=== PATIENT | male | born 1960 | race Caucasian/White ===

== ENCOUNTER 2018-07-11 14:28 | Outpatient (CLI) | payer BC ==
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
[~2018-07-11] VITALS: Ht 188 cm; Wt 95.3 kg
== END 2018-07-11 14:53 ==
LOC: PREOP 14:28
PROVIDERS: ATTEND Internal Medicine
DX: Z01.818 Encounter for other preprocedural examination (principal)

== ENCOUNTER 2018-07-14 06:56 | Day surgery (SDC) | payer BC ==
[~2018-07-14] VITALS: Ht 188 cm; Wt 95.3 kg
[2018-07-14] MEDS ORDERED: D5 LR IV SOLUTION 1,000 ML IV ONE (07:07)
[2018-07-14] MEDS ORDERED: fentaNYL INJECTION 100 MCG/2 ML AMP ONE (07:21)
[2018-07-14] MEDS ORDERED: MIDAZOLAM 2 MG/2 ML (VERSED) VIAL ONE (07:21)
[2018-07-14] MEDS ORDERED: LIDOCAINE JELLY 2% 6 ML SYRINGE ONE (07:21)
[2018-07-14] MEDS ORDERED: D5 LR IV SOLUTION 1,000 ML IV STA (07:35)
[2018-07-14 07:39] VITALS: BP 132/92
[2018-07-14] MEDS ORDERED: MIDAZOLAM 2 MG/2 ML (VERSED) VIAL IVP ONE (07:45)
[2018-07-14] MEDS ORDERED: fentaNYL INJECTION 100 MCG/2 ML AMP IVP ONE (07:45)
[2018-07-14] MEDS ORDERED: LIDOCAINE JELLY 2% 6 ML SYRINGE MM PRN (07:45)
[2018-07-14 08:10] VITALS: BP 119/75
--- NOTE | 2018-07-14 08:17 | Pre-Op Note & Conscious Sedat ---
Pre-Operative Progress Note H&P Reviewed The H&P was reviewed, patient examined and no changes noted. Date H&P Reviewed: Jul 14, 2018 Time H&P Reviewed: 07:00 Conscious Sedation Pre-Proced ASA Score 1 For ASA 3 and 4: Consider anesthesia and medical clearance. Also, for patients with a history of failed moderate sedation consider anesthesia. Airway Lungs Heart ASA score ASA 1: a normal healthy patient ASA 2: a patient with a mild systemic disease (mid diabetes, controlled hypertension, obesity ASA 3: a patient with a severe systemic disease that limits activity (angina , COPD, prior Myocardial infarction) ASA 4: a patient with an incapacitating disease that is a constant threat to life (CHF, renal failure) ASA 5: a moribund patient not expected to survive 24 hrs. (ruptured aneurysm) ASA 6: a declared brain- patient whose organs are being harvested. For emergent operations, add the letter E after the classification Mallampati Classification Grade 2 Sedation Plan Analgesia, Amnesia, Plan communicated to team members, Discussed options with patient/fam, Discussed risks with patient/fam The patient is an appropriate candidate to undergo the planned procedure, sedation, and anesthesia. The patient immediately re-assessed prior to indication. TEENA SOLIS MD Jul 14, 2018 08:17
[2018-07-14 08:35] VITALS: BP 118/86
[2018-07-14 08:41] VITALS: BP 118/86
--- NOTE | 2018-07-14 11:36 | OPERATIVE REPORT ---
DATE OF SERVICE: COLONOSCOPY SUMMARY INDICATION FOR THE PROCEDURE: Screening colonoscopy. "I am his primary care provider." The patient was placed in the left lateral decubitus position. Prior to undergoing colonoscopy, digital rectal evaluation was performed. Anal sphincter tone was normal. Perianal reflexes intact. No abnormalities were noted on visual inspection of anal canal or distal rectal vault. The prostate is normal in size, anodular, nontender to digital inspection. The colonoscope was then inserted into the rectum and under direct visualization advanced to the cecum. The cecum was identified by identification of the ileocecal valve and cecal strap as well as appendiceal orifice. Photographic documentation was obtained and the quality of prep was good. FINDINGS: There is no evidence for internal or external hemorrhoids and the rectum and sigmoid colon were unremarkable. Present in the distal descending colon was a roughly 8 mm adenomatous appearing polyp, likely on a very short stalk. It was snared and ligated noted at the base had the appearance of a small amount of remaining adenomatous tissue uniform appearance. No ulceration. The base was biopsied, cauterized and submitted in a separate cup. Photograph was obtained. The remainder of the descending colon, splenic flexure, transverse colon, hepatic flexure, ascending colon and cecum were unremarkable. ASSESSMENT: An 8 mm polyp likely on a very short stalk was present today and removed in its entirety via snare with some questionable polyp tissue spilling out from the adjacent base, which was cauterized. As long as there is no surprise on histopathology report as in dysplasia or microscopic malignancy, we will likely be abdicating repeat surveillance colonoscopy in one year. No other abnormalities were noted on colonoscopy to the cecum with normal digital rectal evaluation of the prostate, anal canal and distal rectum. Job ID: [id number] DocumentID: [id number] Dictated Date: 07/14/2018 08:51:53 Appraiser Irrigation Tax Date: 07/14/2018 11:35:44 Dictated By: TEENA SOLIS MD [facility]
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
== END 2018-07-14 09:45 | disposition home or self-care (01) ==
LOC: SDC 06:56 → ENDO 09:45
PROVIDERS: ATTEND Internal Medicine
DX: Z12.11 Encounter for screening for malignant neoplasm of colon (principal); D12.4 Benign neoplasm of descending colon; E78.5 Hyperlipidemia, unspecified
CPT/HCPCS: 88305

== ENCOUNTER → 2019-07-17 | Outpatient (CLI) | payer BC | END | disposition home or self-care (01) | LOC: PREOP 05:37 | PROVIDERS: ATTEND Internal Medicine | DX: Z01.818 Encounter for other preprocedural examination (principal) ==

== ENCOUNTER 2022-07-22 11:55 | Outpatient (CLI) | payer BC ==
[~2022-07-22] VITALS: Ht 185.5 cm; Wt 100.0 kg
[~2022-07-22 11:55] MED LIST: BENA10TA66 PO; ROSU10TA28 PO
== END 2022-07-22 13:36 | disposition home or self-care (01) ==
LOC: PREOP 11:55
PROVIDERS: ATTEND Internal Medicine
DX: Z01.818 Encounter for other preprocedural examination (principal)

== ENCOUNTER 2022-07-24 09:36 | Day surgery (SDC) | payer BC ==
--- NOTE | 2022-07-22 12:28 | HISTORY AND PHYSICAL ---
ESOPHAGOGASTRODUODENOSCOPY HISTORY AND PHYSICAL HISTORY OF PRESENT ILLNESS: The patient is a 61-year-old white male who presented to the office complaining about a 3-week history of epigastric pain with dysphagia and odynophagia to solids. He denies melena or bright red blood per rectum. He has had pretty much continual pain, but worse with swallowing. He has had no night sweats, chills or fever. Denied any nausea or vomiting. He is unsure whether or not he has lost any weight since the onset of the symptoms. PAST MEDICAL HISTORY: Significant for hypertension and hyperlipidemia. He has no past smoking history and no significant alcohol intake. PHYSICAL EXAMINATION: GENERAL: Reveals mildly uncomfortable white male due to epigastric discomfort. VITAL SIGNS: Weight was stable compared to 6 months ago at 221 pounds, blood pressure 118/80. CHEST: Clear. CARDIOVASCULAR: Reveals regular rate and rhythm without murmur, S3, or S4. ABDOMEN: Soft, supple. There is mild epigastric pain to palpation without rebound or guarding. No mass or organomegaly noted. No bruits noted. Bowel sounds positive. EXTREMITIES: Revealed no cyanosis, clubbing or edema. ASSESSMENT AND PLAN: For further investigation of epigastric pain with dysphagia to solids and odynophagia, the patient is being set up for an EGD evaluation this Wednesday. Instructions were given. He will avoid nonsteroidal medications. We will empirically initiate pantoprazole 40 mg daily in the interim. Job ID: [id number] DocumentID: [id number] Dictated Date: 07/22/2022 11:58:08 Jet Dyeing Machine Operator Date: 07/22/2022 12:16:00 Dictated By: TEENA SOLIS MD
[~2022-07-24] VITALS: Ht 185.5 cm; Wt 100.0 kg
[2022-07-24] MEDS ORDERED: LACTATED RINGERS 1,000 ML IV STA (09:48)
[2022-07-24 09:55] VITALS: BP 149/96
[2022-07-24] MEDS ORDERED: HURRICAINE EXT TUBE (BENZOCAINE) XX PRN (10:00)
--- NOTE | 2022-07-24 10:05 | Pre-Op Note & Conscious Sedat ---
Pre-Operative Progress Note Date H&P Reviewed: Jul 24, 2022 Time H&P Reviewed: 10:04 History & Physical: H&P Reviewed, Patient Examed, No changes noted Pre-Op Diagnosis: fe deficiency anemia Conscious Sedation Pre-Proced ASA Score 3 For ASA 3 and 4: Consider anesthesia and medical clearance. Also, for patients with a history of failed moderate sedation consider anesthesia. Airway Lungs Heart ASA score ASA 1: a normal healthy patient ASA 2: a patient with a mild systemic disease (mid diabetes, controlled hypertension, obesity ASA 3: a patient with a severe systemic disease that limits activity (angina, COPD, prior Myocardial infarction) ASA 4: a patient with an incapacitating disease that is a constant threat to life (CHF, renal failure) ASA 5: a moribund patient not expected to survive 24 hrs. (ruptured aneurysm) ASA 6: a declared brain- patient whose organs are being harvested. For emergent operations, add the letter E after the classification Mallampati Classification Grade 2 Sedation Plan Analgesia, Amnesia, Plan communicated to team members, Discussed options with patient/fam, Discussed risks with patient/fam The patient is an appropriate candidate to undergo the planned procedure, sedation, and anesthesia. The patient immediately re-assessed prior to indication. TEENA SOLIS MD Jul 24, 2022 10:05
[2022-07-24] MEDS ORDERED: PROPOFOL INJECTION 50 ML IV ONE (10:25)
[2022-07-24 10:55] VITALS: BP 105/64
--- NOTE | 2022-07-24 10:57 | Anesthesia-General Post-Op ---
MAC Patient Condition Mental Status/LOC: Same as Preop Cardiovascular: Satisfactory Nausea/Vomiting: Absent Respiratory: Satisfactory Pain: Controlled Complications: Absent Post Op Complications Complications None Follow Up Care/Instructions Patient Instructions None needed. Anesthesiology Discharge Order Discharge Order Patient is doing well, no complaints, stable vital signs, no apparent adverse anesthesia problems. No complications reported per nursing. KORTNEY DAO CRNA Jul 24, 2022 10:57
[2022-07-24 11:00] VITALS: BP 117/73
[2022-07-24 11:05] VITALS: BP 101/63
[2022-07-24 11:38] LABS: BASOPHILS # (AUTO) 0.1 10^3/uL (0.0-0.1); BASOPHILS % (AUTO) 1 % (0-10); EOSINOPHILS # (AUTO) 0.4 10^3/uL (0.0-0.3); EOSINOPHILS % (AUTO) 6 % (0-10); HEMATOCRIT 38 % (40-54); HEMOGLOBIN 13.4 g/dL (13.3-17.7); LYMPHOCYTES # (AUTO) 0.9 10^3/uL (1.0-4.0); LYMPHOCYTES % (AUTO) 11 % (12-44); MEAN CORPUSCULAR HEMOGLOBIN 30 pg (25-34); MEAN CORPUSCULAR HGB CONC 35 g/dL (32-36); MEAN CORPUSCULAR VOLUME 84 fL (80-99); MEAN PLATELET VOLUME 9.6 fL (9.0-12.2); MONOCYTES # (AUTO) 0.7 10^3/uL (0.0-1.0); MONOCYTES % (AUTO) 9 % (0-12); NEUTROPHILS # (AUTO) 5.7 10^3/uL (1.8-7.8); NEUTROPHILS % (AUTO) 73 % (42-75); PLATELET COUNT 292 10^3/uL (130-400); WHITE BLOOD COUNT 7.8 10^3/uL (4.3-11.0)
--- NOTE | 2022-07-24 11:40 | Progress Note-Post Operative ---
Post-Procedure Note Physician (s)/Fiberglass Auto Body Repairer (s) Physician TEENA SOLIS MD Pre-Procedure Diagnosis Pre-Procedure Diagnosis: fe deficiency anemia Post-Procedure Diagnosis Post-operative diagnosis: The patient was placed in the left lateral decubitus position. The endoscope was inserted into the oral cavity and under direct visualization advanced down the esophagus through the stomach into the second portion of the duodenum. A careful inspection was made as the endoscope was withdrawn. Findings: The posterior pharynx epiglottis arytenoid aperture and true and false vocal folds were unremarkable to visual inspection. Proximal and midesophagus were unremarkable with no evidence for dilatation. Beginning 3037 cm from the incisor orifice was a distal esophageal mass friable with some mild narrowing of the esophagus but there was no difficulty in advancing the scope into the stomach. There is an associated ulceration with no evidence to suggest Hooper's esophagus. The ulceration extends into the adjacent cardia of the stomach noted on retroflexed photograph. Multiple biopsies were obtained. There is no evidence for hiatal hernia formation. The remainder of the cardia fundus antrum pylorus pyloric channel duodenal bulb and second portion were unremarkable with no evidence for peptic ulcer disease gastritis or duodenitis. A/P 1. There is a distal esophageal mass with ulceration and secondary mild narrowing of the distal esophagus without endoscopic evidence for Hooper's change and no evidence for hiatal hernia. Ulceration extends into the adjacent cardia noted on retroflexed photograph. multiple biopsies were obtained and submitted for histopathology. staging CT of the chest and abdomen were scheduled to be done later today. We are in the process Of making oncology referral. Findings were discussed with the patient. TEENA SOLIS MD Jul 24, 2022 11:40
[2022-07-24 11:54] LABS: POTASSIUM 4.5 MMOL/L (3.6-5.0)
[2022-07-24 11:55] LABS: CALCIUM 8.9 MG/DL (8.5-10.1)
[2022-07-24 11:56] LABS: TOTAL PROTEIN 6.5 GM/DL (6.4-8.2)
[2022-07-24 11:58] LABS: BILIRUBIN,TOTAL 0.7 MG/DL (0.1-1.0)
[2022-07-24 12:00] LABS: CREATININE SERUM 0.79 MG/DL (0.60-1.30)
[2022-07-24 12:20] LABS: EOSINOPHILS % (MANUAL) 1 %; LYMPHOCYTES % (MANUAL) 7 %; MONOCYTES % (MANUAL) 7 %; NEUTROPHILS % (MANUAL) 85 %; RBC MORPH NORMAL
[2022-07-24] MEDS ORDERED: CATHETER FLUSH 10 ML SYR IV PRN (12:30)
[2022-07-24] MEDS ORDERED: BARIUM SUSPENSION 2.1% (VANILLA SILQ) 450 ML PO ONE (12:30)
[2022-07-24] MEDS ORDERED: NS 100 ML (IVPB) BAG IV ONE (12:30)
[2022-07-24] MEDS ORDERED: IOHEXOL 350 MG/ML 100 ML (OMNIPAQUE 350) VIAL IV ONE (12:30)
[2022-07-24] MEDS ORDERED: HOLD METFORMIN - RECEIVED CONTRAST 20 ML VIAL IV SCH (12:30)
[2022-07-24 13:00] VITALS: BP 101/63
--- NOTE | 2022-07-24 16:49 | Diagnostic Imaging Report ---
EXAMINATION: CT chest with contrast, CT abdomen with and without contrast. TECHNIQUE: Precontrast acquisitions were acquired through the abdomen. Multiple contiguous axial images were obtained through the chest and abdomen after administration of intravenous contrast. All CT scans use one or more of the following dose optimizing techniques: automated exposure control, MA and/or KvP adjustment based on a patient size and exam type, or iterative reconstruction. HISTORY: esophageal cancer staging COMPARISON: None available. FINDINGS: Thyroid: The thyroid is normal. Mediastinum: Heart size is normal without significant pericardial effusion. Calcifications of the aorta and coronary vessels. Thoracic aorta is normal in caliber. No suspicious lymphadenopathy. Lungs and airways: The lungs are clear without consolidation, pleural effusion, or pneumothorax. No suspicious pulmonary lesion. The airways are normal. Solid organs: The liver is normal without focal lesion. There is no biliary ductal dilation. Gallbladder is normal. Pancreas is normal. Spleen is normal. There is a left adrenal mass measuring 3.7 cm which demonstrates Hounsfield units of -17. The kidneys are normal without hydronephrosis. Bowel: There may be mild wall thickening of the distal esophagus to the gastroesophageal junction. Wall thickening may extend into the proximal stomach across the gastroesophageal junction. There is no bowel obstruction. Peritoneum: There is no intraperitoneal free fluid or free air. There is a 2.2 x 1.7 cm gastrohepatic lymph node. No other suspicious lymphadenopathy is seen. Vasculature: Normal without aneurysm. Musculoskeletal: Multilevel degenerative changes of the spine. There is a compression deformity of the T11 vertebral body. No suspicious osseous lesion. IMPRESSION: 1. Wall thickening of the distal esophagus and proximal stomach which may correspond to the history of esophageal cancer. 2. Enlarged gastric hepatic lymph node concerning for montse metastasis. 3. No other findings of metastatic disease within the chest, abdomen, or pelvis. 4. The 3.7 cm left adrenal mass with imaging characteristics favoring an adenoma or myolipoma. Recommend continued attention on followup imaging. Dictated by: Dictated on workstation # [id number]
== END 2022-07-24 13:07 | disposition home or self-care (01) ==
LOC: ENDO 09:36
PROVIDERS: ATTEND Internal Medicine
DX: C15.9 Malignant neoplasm of esophagus, unspecified (principal); K22.10 Ulcer of esophagus without bleeding; D50.9 Iron deficiency anemia, unspecified
CPT/HCPCS: 36415; 71260; 74170; 80053; 82565; 84520; 85007; 85027; 88305

== ENCOUNTER → 2022-07-30 | Outpatient (CLI) | payer BC ==
[~2022-07-30] MED LIST changes: +CATHETER FLUSH 10 ML SYR IVP PRN
--- NOTE | 2022-07-31 08:39 | Diagnostic Imaging Report ---
Indication: Malignant neoplasm of the cardia, gastroesophageal carcinoma. Serum blood glucose level at time of injection is 97 mg/dL. Patient was administered 10.1 mCi F-18 FDG intravenously left antecubital location and PET imaging was performed from the top of skull to mid thighs. Noncontrast CT was also performed for attenuation correction and anatomic correlation. No prior PET/CT studies are available for comparison. Comparison is made with conventional CT from 07/24/2022. There is normal symmetric activity throughout the brain. Soft tissues of the neck are unremarkable. No mediastinal or hilar hypermetabolism is identified. No pulmonary parenchymal hypermetabolism is identified. There is hypermetabolic mass in the region of the distal esophagus GE junction corresponding with no malignancy. This demonstrates SUV max of 17.8. There are 2 enlarged lymph nodes just posterior to the pancreatic body which are hypermetabolic. Largest is approximately 2.1 cm in size and demonstrate SUV max of 24.8. No other areas of abnormal hypermetabolism are seen. Is physiologic uptake within the gastrointestinal or genitourinary tract over the abdomen and pelvis. IMPRESSION: Hypermetabolic mass at the GE junction consistent with a known primary malignancy. There are 2 hypermetabolic lymph nodes in the central retroperitoneum consistent with metastatic montse disease. No other abnormal regions of hypermetabolism are identified. Dictated by: Dictated on workstation # [id number]
== END ==
LOC: RAD 10:15
PROVIDERS: ATTEND Internal Medicine Hematology & Oncology
DX: C16.0 Malignant neoplasm of cardia (principal)
CPT/HCPCS: 78815; 82947; A9552

== ENCOUNTER 2022-08-04 14:30 | Outpatient (RCR) | payer BC ==
[~2022-08-04 14:30] MED LIST changes: -CATHETER FLUSH 10 ML SYR IVP PRN
== END 2022-08-14 | disposition home or self-care (01) ==
LOC: ONC 14:30
PROVIDERS: ATTEND Internal Medicine Hematology & Oncology
DX: Z53.9 Procedure and treatment not carried out, unspecified reason (principal)

== ENCOUNTER 2022-08-31 05:32 | Outpatient (CLI) | payer BC ==
[~2022-08-31] VITALS: Ht 185.4 cm; Wt 99.0 kg
[2022-08-31] MEDS ORDERED: SPIR25TA PO (09:57)
[2022-08-31] MEDS ORDERED: PANT40TA52 PO (09:58)
== END 2022-08-31 10:09 | disposition home or self-care (01) ==
LOC: PREOP 05:32
PROVIDERS: ATTEND Surgery
DX: Z01.818 Encounter for other preprocedural examination (principal)

== ENCOUNTER 2022-09-02 07:42 | Day surgery (SDC) | payer BC ==
[~2022-09-02] VITALS: Ht 185 cm; Wt 99.0 kg
[~2022-09-02 07:42] MED LIST changes: +PANT40TA52 PO; +SPIR25TA PO
--- NOTE | 2022-09-02 07:53 | Progress Note-Pre Operative ---
Pre-Operative Progress Note Date H&P Reviewed: Sep 02, 2022 Time H&P Reviewed: 07:53 History & Physical: H&P Reviewed, Patient Examed, No changes noted Pre-Operative Diagnosis: esophageal cancer DEVORA ALEX DO Sep 02, 2022 07:53
[2022-09-02] MEDS ORDERED: HEParin (CENTRAL IV FLUSH) 500 UNIT/5 ML SYR ONE (08:02)
[2022-09-02] MEDS ORDERED: 0.9% SODIUM CHLORIDE PF INJ 20 ML VIAL ONE (08:02)
[2022-09-02] MEDS ORDERED: BUP/EPI 0.5% 1:200,000 (SENSORCAINE) 30 ML VIAL ONE (08:02)
[2022-09-02] MEDS ORDERED: LACTATED RINGERS 1,000 ML IV PRN (08:45)
[2022-09-02] MEDS ORDERED: ceFAZolin INJECTION 2,000 MG in NS (IVPB) 50 ML IV ONE (08:45)
[2022-09-02 08:46] VITALS: BP 144/99
[2022-09-02] MEDS ORDERED: PROPOFOL INJECTION 50 ML IV ONE (09:01)
[2022-09-02] MEDS ORDERED: MIDAZOLAM 2 MG/2 ML (VERSED) VIAL ONE (09:01)
[2022-09-02] MEDS ORDERED: GLYCOPYRROLATE 0.2 MG/ML (ROBINUL) 2 ML VIAL ONE (09:04)
[2022-09-02] MEDS ORDERED: 0.9% SODIUM CHLORIDE PF INJ 20 ML VIAL IR ONE (09:23)
--- NOTE | 2022-09-02 09:26 | Progress Note-Post Operative ---
Post-Operative Progess Note Surgeon (s)/Internal Communications Specialist (s) Surgeon DEVORA ALEX DO Internal Communications Specialist: na Pre-Operative Diagnosis esophageal cancer Post-Operative Diagnosis same Procedure & Operative Findings Date of Procedure 09/02/22 Procedure Performed/Findings PROCEDURE: Right internal jugular port placement using ultrasound guidance. COMPLICATIONS: None. INDICATIONS: The patient is a 62 year old male with esophageal cancer. Patient understands the risks and benefits of port placement and wished to proceed with the procedure. Consent was signed on the chart. PROCEDURE: The patient was taken to the operating suite, was prepped and draped in the sterile fashion. A surgical pause was performed. Ultrasound was used to locate the internal jugular vein. Once located anesthetic was infiltrated above it. Using micro-access kit, the right internal vein was accessed. Dark nonpulsatile blood was withdrawn. The wire was inserted. Fluoroscopy assured proper placement. The needle was removed. The micro-access dilator was advanced over the wire and the wire was removed. The regular wire was inserted and fluoroscopy assured proper placement. The wire was then secured. Local anesthetic was used to anesthetize from the neck for tunneling down to the right chest and for pocket creation. A 15 blade scalpel was used to make an incision over the right chest. Cautery was used to dissect down to the pectoral fascia. A pocket was created with blunt dissection. The dilator sheath was then advanced over the wire under fluoroscopy and the dilator and wire were removed. The Groshong catheter was inserted through the sheath and the sheath was then removed. The Groshong wire was removed. The catheter was then tunneled to the right chest pocket. Fluoroscopy was used to cut to length and this was then attached to the port which was then placed within the pocket. The port was then accessed without difficulty. It was then flushed with saline and then heparin. The subcutaneous tissues were then reapproximated using 3-0 Vicryl. The areas were then washed and dried. Skin Affix was placed over incision. The insertion point of the neck Skin Affix was placed over the incision. The patient tolerated the procedure well without complication and was taken to recovery room in stable condition. Chest x-ray is pending. Anesthesia Type mac c sedation Estimated Blood Loss Estimated blood loss (mL): minimal Specimens/Packing Specimens Removed DEVORA Dominguez DO Sep 02, 2022 09:26
--- NOTE | 2022-09-02 09:28 | Discharge Inst-Simple/Standard ---
Discharge Inst-Standard Patient Instructions/Follow Up Plan of Care/Instructions/FU: 2 weeks Samy Activity as Tolerated: No Discharge Diet: Regular Diet Other Inst to Patient Follow up Appt: Make appointment for 2 week. Instructions: No lifting greater than 10 pounds. No strenuous activity. May shower in 24 hours, no tub bath or soaking. Use incentive spirometer at home as directed. No Smoking Skin/Wound Care: You have special glue over your incision that will fall off on it's own. Ice pack on 15 min and off 30 min and repeat for first 48 hours. Symptoms to Report: Appetite Changes, Extremity Discoloration, Numbness/Tingling, Swelling Increased, Bleeding Excessive, Eyesight Changes, Pain Increased, Urine Color Change, Constipation(Persistent), Fever over 101 degree F, Pain/Pressure in chest, Urinating Difficulty, Cough Up/Vomit Blood, Heart Beat Irreg/Pounding, Pain/Pressure in jaw, Vaginal Bleeding Increase, Cramps in feet or legs, Lightheadedness, Pain/Pressure in shoulder, Diarrhea(Persistent), Memory Changes Suddenly, Questions/Concerns, Weight gain consecutive days, Dizziness/Fainting, Nausea/Vomiting, Shortness of Breath, Weight gain over 2 pounds If questions or concerns contact your physician Or seek help at emergency department. DEVORA ALEX DO Sep 02, 2022 09:28
[2022-09-02 09:30] VITALS: BP 109/67
[2022-09-02] MEDS ORDERED: BUP/EPI 0.5% 1:200,000 (SENSORCAINE) 30 ML VIAL INJ ONE (09:34)
[2022-09-02] MEDS ORDERED: HEParin (CENTRAL IV FLUSH) 500 UNIT/5 ML SYR XX ONE (09:36)
[2022-09-02 09:40] VITALS: BP 115/81
[2022-09-02 09:50] VITALS: BP_SYST 116; BP_DIAS 78; BP_DIAS 96
--- NOTE | 2022-09-02 09:54 | Diagnostic Imaging Report ---
INDICATION: Central venous port placement. AP view of the chest is obtained. There is an object overlying the right chest which limits evaluation. Right anterior chest wall port is in place with catheter tip reaching the mid superior vena cava. There is no evidence of pneumothorax. Left lung is clear. Heart size and pulmonary vascularity are within normal limits without significant pleural fluid. IMPRESSION: No acute abnormality or complication. Study is limited by radiopaque material overlying the right chest. Dictated by: Dictated on workstation # [id number]
[2022-09-02 10:20] VITALS: BP_SYST 116; BP_SYST 131; BP_DIAS 92; BP_DIAS 96
--- NOTE | 2022-09-02 11:20 | Anesthesia-General Post-Op ---
MAC Patient Condition Mental Status/LOC: Same as Preop Cardiovascular: Satisfactory Nausea/Vomiting: Absent Respiratory: Satisfactory Pain: Controlled Complications: Absent Post Op Complications Complications None Follow Up Care/Instructions Patient Instructions None needed. Anesthesiology Discharge Order Discharge Order Patient is doing well, no complaints, stable vital signs, no apparent adverse anesthesia problems. No complications reported per nursing. EYAL PAUL CRNA Sep 02, 2022 11:20
--- NOTE | 2022-09-02 14:50 | Diagnostic Imaging Report ---
FLUOROSCOPY UP TO 1 HOUR DATE: 09/02/2022 10:29 AM INDICATION: PORT PLACEMENT IN OR TECHNIQUE: Intraoperative CT acquisition of the Lumbar spine was performed without intravenous contrast. One or more of the following dose reduction techniques were utilized: Automated exposure control (AEC), Adjustment of mA and/or kV according to patient size, Use of iterative reconstruction technique such as ASiR, CT scan done according to ALARA and image gently/image wisely COMPARISON: None. Radiation Dose: Total Exposure Air Kerma (Ka,r) 2.9 mGy; time: 20.4 seconds FINDINGS: Single spot view obtained during port placement demonstrating tip positioned in the cavoatrial junction. IMPRESSION: Intraoperative localization. Please see operative report for additional details. Dictated by: Dictated on workstation # [id number]
== END 2022-09-02 10:58 | disposition home or self-care (01) ==
LOC: SDC 07:42
PROVIDERS: ATTEND Surgery
DX: C15.9 Malignant neoplasm of esophagus, unspecified (principal); I87.2 Venous insufficiency (chronic) (peripheral); K21.9 Gastro-esophageal reflux disease without esophagitis; Z79.899 Other long term (current) drug therapy
CPT/HCPCS: 36561; 71045; 76000; 87081; C1788

== ENCOUNTER 2022-09-11 08:00 | Outpatient (RCR) | payer BC ==
[2022-09-07 08:58] LABS: BASOPHILS % (AUTO) 0 % (0-10); EOSINOPHILS % (AUTO) 0 % (0-10); HEMATOCRIT 39 % (40-54); HEMOGLOBIN 13.8 g/dL (13.3-17.7); LYMPHOCYTES # (AUTO) 0.4 10^3/uL (1.0-4.0); LYMPHOCYTES % (AUTO) 3 % (12-44); MEAN CORPUSCULAR HEMOGLOBIN 30 pg (25-34); MEAN CORPUSCULAR HGB CONC 35 g/dL (32-36); MEAN CORPUSCULAR VOLUME 84 fL (80-99); MEAN PLATELET VOLUME 9.1 fL (9.0-12.2); MONOCYTES # (AUTO) 0.3 10^3/uL (0.0-1.0); MONOCYTES % (AUTO) 2 % (0-12); NEUTROPHILS # (AUTO) 15.3 10^3/uL (1.8-7.8); NEUTROPHILS % (AUTO) 95 % (42-75); PLATELET COUNT 375 10^3/uL (130-400); WHITE BLOOD COUNT 16.1 10^3/uL (4.3-11.0)
[2022-09-07 09:50] LABS: ALBUMIN 4.5 GM/DL (3.2-4.5); BILIRUBIN,TOTAL 0.6 MG/DL (0.1-1.0); CALCIUM 9.4 MG/DL (8.5-10.1); CREATININE SERUM 0.81 MG/DL (0.60-1.30); POTASSIUM 4.2 MMOL/L (3.6-5.0); TOTAL PROTEIN 7.5 GM/DL (6.4-8.2)
[~2022-09-11] VITALS: Ht 185.4 cm; Wt 98.9 kg
[~2022-09-11 08:00] MED LIST changes: +D5W 500 ML IV SOLUTION 500 ML IV SCH; +D5W IV SCH; +DOCETAXEL IV SCH; +FILGRASTIM AAFI 480 MCG/0.8 ML SQ SCH; +FLUOROURACIL IV SCH; +HEParin (CENTRAL IV FLUSH) 500 UNIT/5 ML SYR IV PRN; +LEUCOVORIN CALCIUM IV SCH; +NORMAL SALINE IV SCH; +NS IV 1000 ML 1,000 ML IV SCH; +NS IV SCH; +OXALIPLATIN IV SCH; +PALONOSETRON HCL 0.25 MG, dexAMETHasone INJECTION 20 MG in NS (IVPB) 50 ML IV SCH
== END 2022-09-13 | disposition home or self-care (01) ==
LOC: ONC 08:00
PROVIDERS: ATTEND Internal Medicine Hematology & Oncology
DX: Z51.11 Encounter for antineoplastic chemotherapy (principal); Z45.2 Encounter for adjustment and management of vascular access device; C16.0 Malignant neoplasm of cardia
CPT/HCPCS: 36591; 80053; 85025; 96368; 96372; 96375; 96413; 96415; 96416; 96417

== ENCOUNTER → 2022-09-21 | Outpatient (CLI) | payer BC ==
[~2022-09-21] MED LIST changes: -D5W 500 ML IV SOLUTION 500 ML IV SCH; -D5W IV SCH; -DOCETAXEL IV SCH; -FILGRASTIM AAFI 480 MCG/0.8 ML SQ SCH; -FLUOROURACIL IV SCH; -HEParin (CENTRAL IV FLUSH) 500 UNIT/5 ML SYR IV PRN; -LEUCOVORIN CALCIUM IV SCH; -NORMAL SALINE IV SCH; -NS IV 1000 ML 1,000 ML IV SCH; -NS IV SCH; -OXALIPLATIN IV SCH; -PALONOSETRON HCL 0.25 MG, dexAMETHasone INJECTION 20 MG in NS (IVPB) 50 ML IV SCH
--- NOTE | 2022-09-21 10:00 | Diagnostic Imaging Report ---
CLINICAL INDICATION: Patient with trouble drawing blood from port this morning. Patient states swelling above the clavicle. EXAM: Chest x-ray, PA and lateral views. COMPARISON: Chest x-ray dated 09/02/2022. FINDINGS: An Infusaport is again seen overlying the right chest which is now in a different position. The Infusaport distal portion is looped over the right lung apex and may be extending in a retrograde manner overlying the right subclavian vein region or less likely outside of the vessel. The lungs are clear. There is no pleural effusion or pneumothorax. The pulmonary vasculature and cardiac silhouette are within normal limits. There are degenerative spurs involving the thoracic spine. IMPRESSION: 1: There is interval change in position of the Infusaport overlying the right chest. The distal portion is now overlying the expected region of the right subclavian vein in a retrograde manner or less likely outside of the vessel. There is no pneumothorax. This catheter should be repositioned or replaced. 2: There is no radiographic evidence of an acute cardiopulmonary process. Dictated by: Dictated on workstation # [id number]
== END ==
LOC: RAD 09:23
PROVIDERS: ATTEND Internal Medicine Hematology & Oncology
DX: T82.599A Other mechanical complication of unspecified cardiac and vascular devices and implants, initial encounter (principal)
CPT/HCPCS: 71046

== ENCOUNTER 2022-09-23 06:45 | Day surgery (SDC) | payer BC ==
[2022-09-23] VITALS (9 sets, daily range): BP systolic 121–136; BP diastolic 83–89
[~2022-09-23] VITALS: Ht 185.4 cm; Wt 96.3 kg
[2022-09-23] MEDS ORDERED: NS IV 1000 ML 1,000 ML IV SCH ×2 (07:00→08:15)
[2022-09-23] MEDS ORDERED: NS IV 1000 ML 1,000 ML ONE (07:01)
[2022-09-23] MEDS ORDERED: LIDOCAINE 1% INJ 20 ML VIAL ONE (07:01)
[2022-09-23] MEDS ORDERED: HEParin (CATH LAB) 2,000 ML IV ONE (07:01)
[2022-09-23 07:28] LABS: PROTHROMBIN TIME PATIENT 13.7 SEC (12.2-14.7)
[2022-09-23] MEDS ORDERED: fentaNYL INJ 100 MCG/2 ML AMP ONE (07:41)
[2022-09-23] MEDS ORDERED: MIDAZOLAM 5 MG/5 ML (VERSED) VIAL ONE (07:41)
--- NOTE | 2022-09-23 07:42 | Cardiac Procedure Note-CS/ASA ---
Pre-Procedure Note Pre-Op Procedure Note Date of Available H&P: September 21, 2022 Date H&P Reviewed: September 23, 2022 Time H&P Reviewed: 07:42 History & Physical: H&P Reviewed, Patient Examed, No changes noted Pre-Operative Diagnosis: esophageal cancer Moderate Sedation PreProcedure Time 07:42 ASA Score 3 Airway Lungs Heart ASA score ASA 1: a normal healthy patient ASA 2: a patient with a mild systemic disease (mid diabetes, controlled hypertension, obesity ASA 3: a patient with a severe systemic disease that limits activity (angina, COPD, prior Myocardial infarction) ASA 4: a patient with an incapacitating disease that is a constant threat to life (CHF, renal failure) ASA 5: a moribund patient not expected to survive 24 hrs. (ruptured aneurysm) ASA 6: a declared brain- patient whose organs are being harvested. For emergent operations, add the letter E after the classification Mallampati Classification Grade 3 Sedation Plan Analgesia, Amnesia, Plan communicated to team members, Discussed options with patient/fam, Discussed risks with patient/fam The patient is an appropriate candidate to undergo the planned procedure, sedation, and anesthesia. The patient immediately re-assessed prior to indication. MIGUEL A SANCHEZ MD September 23, 2022 07:42
[2022-09-23] MEDS ORDERED: PATIENT MAY USE OWN MEDS, ALL PO SCH (08:15)
--- NOTE | 2022-09-23 08:18 | Discharge Inst-Post CATH ---
Discharge Inst-CATH/EP Problems Reviewed?: Yes Post Cardiac Cath/EP D/C Inst <b>CARDIAC CATH/EP PROCEDURE DISCHARGE INSTRUCTIONS</b> ACTIVITY * Go Home directly and rest. * Limit activity of the leg (or wrist if it was used) for 7 days including aerobics, swimming, jogging, bicycling, etc. * Restrict stair-climbing for 7 days if possible, if not, climb up with your non-cath leg, then bring together on the same step. * Avoid lifting, pushing, pulling or excessive movement of the affected extremity for 7 days. * Customary sexual activity may be resumed after 2 days-use caution not to use a position that strains or causes pain to the affected extremity. * No driving for 24 hours. * NO SMOKING. * Avoid straining for bowel movements for 7 days. * Gentle walking on level ground is allowed. * Returning to work will depend on the type of procedure and the results. Your doctor will discuss this with you. CALL YOUR DOCTOR FOR ANY OF THE FOLLOWING: *If bleeding from the puncture site occurs- Apply gentle pressure to site with clean cloth and call your doctor or EMS. * If a knot or lump forms under the skin, increases in size, or causes pain. * If bruising appears to be worsening or moving further down your leg instead of disappearing. * Temperature above 101 F. CARE OF YOUR GROIN INCISION; * Bruising or purple discoloration of the skin near the puncture site is common. * You may shower only, no bathtub bathing for 5 days. Be careful to avoid slipping as your leg may feel stiff. * If a closure device was used on your femoral artery, please see the attached guide regarding care of the device and your leg. * Leave dressing on FOR 24 hours. CARE OF YOUR WRIST INCISION; * Bruising or purple discoloration of the skin near the puncture site is common. * You may shower. * DO NOT submerge wrist. * Leave dressing on FOR 24 hours. MIGUEL A SANCHEZ MD September 23, 2022 08:18
--- NOTE | 2022-09-23 08:23 | Cardiac Procedure Note-KU ---
Cardiology Procedures Date of Procedure 09/23/22 Repositioning of Port-A-Cath Procedure note Patient had esophageal cancer, has port placed and it appeared that after coughing spell had the port tip turned and was looped in the SVC. Patient was referred for repositioning of his port. After explaining the procedure to the patient all pros and cons were explained, patient was placed on the cardiac catheterization laboratory, he signed a consent. Local anesthesia applied then 7 Nepali sheath was placed in the right femoral vein, IM catheter was advanced to the SVC with the assistance of Storq wire. I was able to loop the catheter around the port using fluoroscopy then I pulled it down and it was successful in readjusting the catheter down in the right atrium. The catheter was removed and sheath was removed and manual pressure applied. Conclusion Successful repositioning of a port in the right atrium Final diagnosis Esophageal cancer Malfunctioning Port-A-Cath Hyperlipidemia Copy Copies To 1: DEVORA ALEX BASHAR J MD September 23, 2022 08:23
== END 2022-09-23 10:40 | disposition home or self-care (01) ==
LOC: CATH 06:45 → SDC 08:29 → CATH 10:40
PROVIDERS: ATTEND Internal Medicine Cardiovascular Disease
DX: T82.514A Breakdown (mechanical) of infusion catheter, initial encounter (principal); C15.9 Malignant neoplasm of esophagus, unspecified; K21.9 Gastro-esophageal reflux disease without esophagitis; E78.2 Mixed hyperlipidemia; I65.23 Occlusion and stenosis of bilateral carotid arteries; I10 Essential (primary) hypertension; Y84.8 Other medical procedures as the cause of abnormal reaction of the patient, or of later complication, without mention of misadventure at the time of the procedure
CPT/HCPCS: 36597; 76000; 85610; 85730; 87081; C1769; C1894; 36415

== ENCOUNTER → 2022-10-14 | Outpatient (RCR) | payer BC ==
[2022-09-14 14:08] LABS: BASOPHILS % (AUTO) 1 % (0-10); EOSINOPHILS # (AUTO) 0.1 10^3/uL (0.0-0.3); EOSINOPHILS % (AUTO) 4 % (0-10); HEMATOCRIT 42 % (40-54); HEMOGLOBIN 14.4 g/dL (13.3-17.7); LYMPHOCYTES # (AUTO) 0.5 10^3/uL (1.0-4.0); LYMPHOCYTES % (AUTO) 17 % (12-44); MEAN CORPUSCULAR HEMOGLOBIN 29 pg (25-34); MEAN CORPUSCULAR HGB CONC 35 g/dL (32-36); MEAN CORPUSCULAR VOLUME 85 fL (80-99); MEAN PLATELET VOLUME 9.5 fL (9.0-12.2); MONOCYTES # (AUTO) 0.8 10^3/uL (0.0-1.0); MONOCYTES % (AUTO) 27 % (0-12); NEUTROPHILS # (AUTO) 1.4 10^3/uL (1.8-7.8); NEUTROPHILS % (AUTO) 49 % (42-75); PLATELET COUNT 240 10^3/uL (130-400); WHITE BLOOD COUNT 2.8 10^3/uL (4.3-11.0)
[2022-09-14 14:36] LABS: ALBUMIN 4.1 GM/DL (3.2-4.5); BILIRUBIN,TOTAL 0.9 MG/DL (0.1-1.0); CALCIUM 9.2 MG/DL (8.5-10.1); CREATININE SERUM 0.9 MG/DL (0.60-1.30); POTASSIUM 4.3 MMOL/L (3.6-5.0); TOTAL PROTEIN 6.9 GM/DL (6.4-8.2)
[2022-09-16 15:35] LABS: ALBUMIN 3.6 GM/DL (3.2-4.5); BILIRUBIN,TOTAL 0.9 MG/DL (0.1-1.0); CALCIUM 8.6 MG/DL (8.5-10.1); CREATININE SERUM 0.8 MG/DL (0.60-1.30); POTASSIUM 3.8 MMOL/L (3.6-5.0); TOTAL PROTEIN 6.2 GM/DL (6.4-8.2)
[2022-09-21 09:01] LABS: BASOPHILS # (AUTO) 0.1 10^3/uL (0.0-0.1); BASOPHILS % (AUTO) 1 % (0-10); EOSINOPHILS % (AUTO) 0 % (0-10); HEMATOCRIT 36 % (40-54); HEMOGLOBIN 12.8 g/dL (13.3-17.7); LYMPHOCYTES # (AUTO) 0.5 10^3/uL (1.0-4.0); LYMPHOCYTES % (AUTO) 5 % (12-44); MEAN CORPUSCULAR HEMOGLOBIN 29 pg (25-34); MEAN CORPUSCULAR HGB CONC 35 g/dL (32-36); MEAN CORPUSCULAR VOLUME 83 fL (80-99); MEAN PLATELET VOLUME 8.7 fL (9.0-12.2); MONOCYTES # (AUTO) 0.1 10^3/uL (0.0-1.0); MONOCYTES % (AUTO) 1 % (0-12); NEUTROPHILS # (AUTO) 9.2 10^3/uL (1.8-7.8); NEUTROPHILS % (AUTO) 87 % (42-75); PLATELET COUNT 316 10^3/uL (130-400); WHITE BLOOD COUNT 10.5 10^3/uL (4.3-11.0)
[2022-09-21 09:29] LABS: ALBUMIN 3.9 GM/DL (3.2-4.5); BILIRUBIN,TOTAL 0.6 MG/DL (0.1-1.0); CALCIUM 8.9 MG/DL (8.5-10.1); CREATININE SERUM 0.75 MG/DL (0.60-1.30); POTASSIUM 4.1 MMOL/L (3.6-5.0); TOTAL PROTEIN 6.7 GM/DL (6.4-8.2)
[2022-09-28 08:53] LABS: BASOPHILS % (AUTO) 0 % (0-10); EOSINOPHILS % (AUTO) 0 % (0-10); HEMATOCRIT 37 % (40-54); HEMOGLOBIN 12.8 g/dL (13.3-17.7); LYMPHOCYTES # (AUTO) 0.6 10^3/uL (1.0-4.0); LYMPHOCYTES % (AUTO) 5 % (12-44); MEAN CORPUSCULAR HEMOGLOBIN 29 pg (25-34); MEAN CORPUSCULAR HGB CONC 35 g/dL (32-36); MEAN CORPUSCULAR VOLUME 83 fL (80-99); MEAN PLATELET VOLUME 9.1 fL (9.0-12.2); MONOCYTES # (AUTO) 0.2 10^3/uL (0.0-1.0); MONOCYTES % (AUTO) 2 % (0-12); NEUTROPHILS # (AUTO) 10.7 10^3/uL (1.8-7.8); NEUTROPHILS % (AUTO) 90 % (42-75); PLATELET COUNT 340 10^3/uL (130-400); WHITE BLOOD COUNT 11.8 10^3/uL (4.3-11.0)
[2022-09-28 09:14] LABS: BILIRUBIN,TOTAL 0.7 MG/DL (0.1-1.0); CALCIUM 9.5 MG/DL (8.5-10.1); CREATININE SERUM 0.78 MG/DL (0.60-1.30); POTASSIUM 4.2 MMOL/L (3.6-5.0); TOTAL PROTEIN 6.6 GM/DL (6.4-8.2)
[2022-10-05 09:52] LABS: BASOPHILS # (AUTO) 0.1 10^3/uL (0.0-0.1); BASOPHILS % (AUTO) 2 % (0-10); EOSINOPHILS # (AUTO) 0.2 10^3/uL (0.0-0.3); EOSINOPHILS % (AUTO) 7 % (0-10); HEMATOCRIT 36 % (40-54); LYMPHOCYTES # (AUTO) 0.7 10^3/uL (1.0-4.0); LYMPHOCYTES % (AUTO) 22 % (12-44); MEAN CORPUSCULAR HEMOGLOBIN 29 pg (25-34); MEAN CORPUSCULAR HGB CONC 36 g/dL (32-36); MEAN CORPUSCULAR VOLUME 80 fL (80-99); MEAN PLATELET VOLUME 9.7 fL (9.0-12.2); MONOCYTES # (AUTO) 0.3 10^3/uL (0.0-1.0); MONOCYTES % (AUTO) 8 % (0-12); NEUTROPHILS % (AUTO) 61 % (42-75); PLATELET COUNT 223 10^3/uL (130-400); WHITE BLOOD COUNT 3.3 10^3/uL (4.3-11.0)
[2022-10-13 09:40] LABS: BASOPHILS % (AUTO) 0 % (0-10); EOSINOPHILS % (AUTO) 0 % (0-10); HEMATOCRIT 37 % (40-54); HEMOGLOBIN 12.8 g/dL (13.3-17.7); LYMPHOCYTES # (AUTO) 0.5 10^3/uL (1.0-4.0); LYMPHOCYTES % (AUTO) 5 % (12-44); MEAN CORPUSCULAR HEMOGLOBIN 29 pg (25-34); MEAN CORPUSCULAR HGB CONC 35 g/dL (32-36); MEAN CORPUSCULAR VOLUME 83 fL (80-99); MEAN PLATELET VOLUME 9.4 fL (9.0-12.2); MONOCYTES # (AUTO) 0.1 10^3/uL (0.0-1.0); MONOCYTES % (AUTO) 1 % (0-12); NEUTROPHILS # (AUTO) 8.3 10^3/uL (1.8-7.8); NEUTROPHILS % (AUTO) 92 % (42-75); PLATELET COUNT 185 10^3/uL (130-400)
[2022-10-13 09:54] LABS: ALBUMIN 4.1 GM/DL (3.2-4.5); CALCIUM 9.5 MG/DL (8.5-10.1); CREATININE SERUM 0.8 MG/DL (0.60-1.30); MAGNESIUM 1.9 MG/DL (1.6-2.4); POTASSIUM 4.1 MMOL/L (3.6-5.0); TOTAL PROTEIN 6.6 GM/DL (6.4-8.2)
[~2022-10-14] MED LIST changes: +D5W 500 ML IV SOLUTION 500 ML IV SCH; +D5W IV SCH; +DOCETAXEL IV SCH; +FILGRASTIM AAFI 480 MCG/0.8 ML SQ SCH; +FLUOROURACIL IV SCH; +HEParin (CENTRAL IV FLUSH) 500 UNIT/5 ML SYR IV PRN; +LEUCOVORIN CALCIUM IV SCH; +NORMAL SALINE IV SCH; +NS IV 1000 ML 1,000 ML IV SCH; +NS IV 1000 ML 1,000 ML ONE; +NS IV SCH; +OXALIPLATIN IV SCH; +PALONOSETRON HCL 0.25 MG, dexAMETHasone INJECTION 20 MG in NS (IVPB) 50 ML IV SCH
== END | disposition home or self-care (01) ==
LOC: ONC 09-14 12:55
PROVIDERS: ATTEND Internal Medicine Hematology & Oncology
DX: Z51.11 Encounter for antineoplastic chemotherapy (principal); C16.0 Malignant neoplasm of cardia
CPT/HCPCS: 80053; 85025; G0463; 36415; 36591; 83735; 96360; 96368; 96372; 96375; 96413; 96415; 96417; 99205

== ENCOUNTER 2022-11-04 16:00 | Outpatient (RCR) | payer BC ==
[2022-10-21 11:18] LABS: BASOPHILS # (AUTO) 0.1 10^3/uL (0.0-0.1); BASOPHILS % (AUTO) 2 % (0-10); EOSINOPHILS % (AUTO) 1 % (0-10); HEMATOCRIT 38 % (40-54); HEMOGLOBIN 13.3 g/dL (13.3-17.7); LYMPHOCYTES # (AUTO) 0.8 10^3/uL (1.0-4.0); LYMPHOCYTES % (AUTO) 24 % (12-44); MEAN CORPUSCULAR HEMOGLOBIN 29 pg (25-34); MEAN CORPUSCULAR HGB CONC 35 g/dL (32-36); MEAN CORPUSCULAR VOLUME 83 fL (80-99); MEAN PLATELET VOLUME 9.3 fL (9.0-12.2); MONOCYTES # (AUTO) 0.7 10^3/uL (0.0-1.0); MONOCYTES % (AUTO) 21 % (0-12); NEUTROPHILS # (AUTO) 1.5 10^3/uL (1.8-7.8); NEUTROPHILS % (AUTO) 47 % (42-75); PLATELET COUNT 182 10^3/uL (130-400); WHITE BLOOD COUNT 3.3 10^3/uL (4.3-11.0)
[2022-10-26 09:13] LABS: BASOPHILS # (AUTO) 0.1 10^3/uL (0.0-0.1); BASOPHILS % (AUTO) 2 % (0-10); EOSINOPHILS % (AUTO) 0 % (0-10); HEMATOCRIT 36 % (40-54); HEMOGLOBIN 12.5 g/dL (13.3-17.7); LYMPHOCYTES # (AUTO) 0.7 10^3/uL (1.0-4.0); LYMPHOCYTES % (AUTO) 17 % (12-44); MEAN CORPUSCULAR HEMOGLOBIN 29 pg (25-34); MEAN CORPUSCULAR HGB CONC 35 g/dL (32-36); MEAN CORPUSCULAR VOLUME 83 fL (80-99); MEAN PLATELET VOLUME 9.2 fL (9.0-12.2); MONOCYTES # (AUTO) 0.7 10^3/uL (0.0-1.0); MONOCYTES % (AUTO) 17 % (0-12); NEUTROPHILS # (AUTO) 2.3 10^3/uL (1.8-7.8); NEUTROPHILS % (AUTO) 57 % (42-75); PLATELET COUNT 165 10^3/uL (130-400); WHITE BLOOD COUNT 4.1 10^3/uL (4.3-11.0)
[2022-10-26 09:23] LABS: ALBUMIN 3.7 GM/DL (3.2-4.5)
[2022-10-26 09:24] LABS: POTASSIUM 4.2 MMOL/L (3.6-5.0)
[2022-10-26 09:25] LABS: CALCIUM 8.9 MG/DL (8.5-10.1)
[2022-10-26 09:26] LABS: TOTAL PROTEIN 5.9 GM/DL (6.4-8.2)
[2022-10-26 09:30] LABS: CREATININE SERUM 0.75 MG/DL (0.60-1.30)
[2022-10-26 09:32] LABS: MAGNESIUM 1.8 MG/DL (1.6-2.4)
[2022-10-26 09:51] VITALS: BP 115/79
[~2022-11-04] VITALS: Ht 185.4 cm; Wt 94.8 kg
[~2022-11-04 16:00] MED LIST changes: +NS (IVPB) 250 ML IV SCH; -NS IV 1000 ML 1,000 ML ONE; +NS IV 500 ML 500 ML ONE
[2022-11-04 16:24] VITALS: BP 108/67
== END 2022-11-13 | disposition home or self-care (01) ==
LOC: ONC 16:00
PROVIDERS: ATTEND Internal Medicine Hematology & Oncology
DX: Z51.11 Encounter for antineoplastic chemotherapy (principal); C16.0 Malignant neoplasm of cardia
CPT/HCPCS: 36591; 80053; 83735; 85025; 96360; 96372; 96375; 96413; 96417

== ENCOUNTER 2022-11-20 11:40 | Outpatient (RCR) | payer BC ==
[2022-11-16 09:32] VITALS: BP 97/61
[2022-11-16 09:34] LABS: BASOPHILS # (AUTO) 0.1 10^3/uL (0.0-0.1); BASOPHILS % (AUTO) 1 % (0-10); EOSINOPHILS # (AUTO) 0.1 10^3/uL (0.0-0.3); EOSINOPHILS % (AUTO) 1 % (0-10); HEMATOCRIT 37 % (40-54); HEMOGLOBIN 12.1 g/dL (13.3-17.7); LYMPHOCYTES # (AUTO) 0.8 10^3/uL (1.0-4.0); LYMPHOCYTES % (AUTO) 15 % (12-44); MEAN CORPUSCULAR HEMOGLOBIN 30 pg (25-34); MEAN CORPUSCULAR HGB CONC 32 g/dL (32-36); MEAN CORPUSCULAR VOLUME 91 fL (80-99); MEAN PLATELET VOLUME 10.1 fL (9.0-12.2); MONOCYTES % (AUTO) 19 % (0-12); NEUTROPHILS # (AUTO) 3.4 10^3/uL (1.8-7.8); NEUTROPHILS % (AUTO) 63 % (42-75); PLATELET COUNT 213 10^3/uL (130-400); WHITE BLOOD COUNT 5.4 10^3/uL (4.3-11.0)
[2022-11-16 09:56] LABS: ALBUMIN 3.5 GM/DL (3.2-4.5); BILIRUBIN,TOTAL 0.8 MG/DL (0.1-1.0); CALCIUM 8.8 MG/DL (8.5-10.1); CREATININE SERUM 0.69 MG/DL (0.60-1.30); TOTAL PROTEIN 5.5 GM/DL (6.4-8.2)
[2022-11-16] MEDS: NS IV 1000 ML 1,000 ML IV SCH (10:24)
[2022-11-18 14:26] VITALS: BP 98/60
[2022-11-18] MEDS: NS IV 1000 ML 1,000 ML IV SCH (15:35)
[2022-11-19 13:08] VITALS: BP 98/60
[~2022-11-20] VITALS: Ht 182.9 cm; Wt 93.2 kg
[~2022-11-20 11:40] MED LIST changes: +DEXAMETHASONE IV SCH; +NS (IVPB) 250 ML 250 ML IV SCH; -NS (IVPB) 250 ML IV SCH; -NS IV 1000 ML 1,000 ML IV SCH; -NS IV 500 ML 500 ML ONE; -PALONOSETRON HCL 0.25 MG, dexAMETHasone INJECTION 20 MG in NS (IVPB) 50 ML IV SCH; +PALONOSETRON HCL IV SCH; +diphenhydrAMINE INJ 50 MG/ML VIAL IV ONE; +diphenhydrAMINE INJ 50 MG/ML VIAL ONE
== END 2022-12-14 | disposition home or self-care (01) ==
LOC: ONC 11:40
PROVIDERS: ATTEND Internal Medicine Hematology & Oncology
DX: Z51.11 Encounter for antineoplastic chemotherapy (principal); Z45.2 Encounter for adjustment and management of vascular access device; C16.0 Malignant neoplasm of cardia
CPT/HCPCS: 36591; 80053; 83735; 85025; 96360; 96368; 96372; 96375; 96413; 96417; 96523

== ENCOUNTER 2023-01-12 10:48 | Outpatient (RCR) | payer BC ==
[~2023-01-12] VITALS: Ht 182.9 cm; Wt 80.7 kg
[~2023-01-12 10:48] MED LIST changes: -D5W 500 ML IV SOLUTION 500 ML IV SCH; -D5W IV SCH; -DEXAMETHASONE IV SCH; -DOCETAXEL IV SCH; -FILGRASTIM AAFI 480 MCG/0.8 ML SQ SCH; -FLUOROURACIL IV SCH; -HEParin (CENTRAL IV FLUSH) 500 UNIT/5 ML SYR IV PRN; -LEUCOVORIN CALCIUM IV SCH; -NORMAL SALINE IV SCH; -NS (IVPB) 250 ML 250 ML IV SCH; -NS IV SCH; -OXALIPLATIN IV SCH; -PALONOSETRON HCL IV SCH; -diphenhydrAMINE INJ 50 MG/ML VIAL IV ONE; -diphenhydrAMINE INJ 50 MG/ML VIAL ONE
[2023-01-12 11:30] VITALS: BP 92/53
[2023-01-12] MEDS ORDERED: NS IV 1000 ML (CANCER CTR) IV SCH (11:30)
[2023-01-12 11:40] LABS: BASOPHILS # (AUTO) 0.1 10^3/uL (0.0-0.1); BASOPHILS % (AUTO) 1 % (0-10); EOSINOPHILS # (AUTO) 0.3 10^3/uL (0.0-0.3); EOSINOPHILS % (AUTO) 5 % (0-10); HEMATOCRIT 41 % (40-54); HEMOGLOBIN 13.5 g/dL (13.3-17.7); LYMPHOCYTES # (AUTO) 0.3 10^3/uL (1.0-4.0); LYMPHOCYTES % (AUTO) 5 % (12-44); MEAN CORPUSCULAR HEMOGLOBIN 31 pg (25-34); MEAN CORPUSCULAR HGB CONC 33 g/dL (32-36); MEAN CORPUSCULAR VOLUME 92 fL (80-99); MEAN PLATELET VOLUME 9.2 fL (9.0-12.2); MONOCYTES % (AUTO) 18 % (0-12); NEUTROPHILS # (AUTO) 3.7 10^3/uL (1.8-7.8); NEUTROPHILS % (AUTO) 70 % (42-75); PLATELET COUNT 207 10^3/uL (130-400); WHITE BLOOD COUNT 5.2 10^3/uL (4.3-11.0)
[2023-01-12 12:10] LABS: ALBUMIN 3.5 GM/DL (3.2-4.5); BILIRUBIN,TOTAL 0.8 MG/DL (0.1-1.0); CALCIUM 9.3 MG/DL (8.5-10.1); CREATININE SERUM 0.72 MG/DL (0.60-1.30); POTASSIUM 3.9 MMOL/L (3.6-5.0)
== END 2023-01-14 | disposition home or self-care (01) ==
LOC: ONC 10:48
PROVIDERS: ATTEND Internal Medicine Hematology & Oncology
DX: Z45.2 Encounter for adjustment and management of vascular access device (principal); Z51.11 Encounter for antineoplastic chemotherapy; C16.0 Malignant neoplasm of cardia
CPT/HCPCS: 80053; 85025; 96360; G0463; 36591; 99214

== ENCOUNTER 2023-01-27 09:46 | Outpatient (RCR) | payer BC ==
[2023-01-15 09:04] LABS: BASOPHILS # (AUTO) 0.1 10^3/uL (0.0-0.1); BASOPHILS % (AUTO) 1 % (0-10); EOSINOPHILS # (AUTO) 0.4 10^3/uL (0.0-0.3); EOSINOPHILS % (AUTO) 6 % (0-10); HEMATOCRIT 39 % (40-54); HEMOGLOBIN 12.9 g/dL (13.3-17.7); LYMPHOCYTES # (AUTO) 0.3 10^3/uL (1.0-4.0); LYMPHOCYTES % (AUTO) 5 % (12-44); MEAN CORPUSCULAR HEMOGLOBIN 31 pg (25-34); MEAN CORPUSCULAR HGB CONC 33 g/dL (32-36); MEAN CORPUSCULAR VOLUME 92 fL (80-99); MEAN PLATELET VOLUME 9.9 fL (9.0-12.2); MONOCYTES # (AUTO) 0.7 10^3/uL (0.0-1.0); MONOCYTES % (AUTO) 12 % (0-12); NEUTROPHILS # (AUTO) 4.3 10^3/uL (1.8-7.8); NEUTROPHILS % (AUTO) 75 % (42-75); PLATELET COUNT 183 10^3/uL (130-400); WHITE BLOOD COUNT 5.8 10^3/uL (4.3-11.0)
[2023-01-15 09:21] LABS: ALBUMIN 3.4 GM/DL (3.2-4.5); BILIRUBIN,TOTAL 0.7 MG/DL (0.1-1.0); CALCIUM 9.1 MG/DL (8.5-10.1); CREATININE SERUM 0.65 MG/DL (0.60-1.30); POTASSIUM 3.8 MMOL/L (3.6-5.0); TOTAL PROTEIN 5.9 GM/DL (6.4-8.2)
[2023-01-21 08:30] VITALS: BP 134/88
[2023-01-21] MEDS: NS IV 1000 ML 1,000 ML IV SCH (08:36)
[2023-01-22 12:10] VITALS: BP 106/62
[2023-01-22] MEDS: NS IV 1000 ML 1,000 ML IV SCH (12:13)
[~2023-01-27] VITALS: Ht 182.9 cm; Wt 81.0 kg
[~2023-01-27 09:46] MED LIST changes: +NS IV 1000 ML 1,000 ML ONE
== END 2023-02-13 | disposition home or self-care (01) ==
LOC: ONC 09:46
PROVIDERS: ATTEND Internal Medicine Hematology & Oncology
DX: Z45.2 Encounter for adjustment and management of vascular access device (principal); Z51.11 Encounter for antineoplastic chemotherapy; C16.0 Malignant neoplasm of cardia
CPT/HCPCS: 36591; 80053; 85025; 96360; 96523; 99214